=== PATIENT | female | born 1955 | race Caucasian/White ===

== ENCOUNTER → 2016-10-28 | Outpatient (CLI) | payer OTHER ==
--- NOTE | 2016-10-29 08:18 | BD ---
EXAMINATION TYPE: MG DEXA axial skeleton. DATE OF EXAM: 10/28/2016 3:57 PM COMPARISON: NONE CLINICAL HISTORY: POST MENOPAUSAL Height: 5'4 Weight: 166 FRAX RISK QUESTIONS: Alcohol (3 or more units per day): no Family History (Parent hip fracture): yes Glucocorticoids (More than 3mos): no (Ex: prednisone, prednisolone, methylprednisolone, dexamethasone, and hydrocortisone). History of Fracture in Adulthood: no Secondary Osteoporosis: 1. Type 1 Diabetes: no 2. Hyperthyroidism: no 3. Menopause before 45: yes 4. Malnutrition: no 5. Chronic liver disease: no Rheumatoid Arthritis: no Current Tobacco Use: no RISK FACTORS HISTORY OF: Postmenopausal woman: MEDICATIONS: Thyroid Medications: Which medication: Synthroid How Lon years Additional Medications: epileptic, blood pressure, type 2 diabetes, cholesterol Additional History: post menopausal EXAM MEASUREMENTS: Bone mineral densitometry was performed using the [employer] System. Bone mineral density as measured about the Lumbar spine is: ----- L1-L4(G/cm2): 1.137 T Score Values are as follows: ----- L2: -0.6 ----- L3: 0.4 ----- L4: -0.6 ----- L1-L4: -0.4 Bone mineral density about the R hip (g/cm2): 0.969 Bone mineral density about the L hip (g/cm2): 0.900 T Score values are as follows: -----R Neck: -0.5 -----L Neck: -1.0 -----R Intertrochanter: -0.6 -----L Intertrochanter: -0.9 IMPRESSION: Normal (Values between +1 and -1 indicate normal bone mass) NOTE: T-SCORE=SD OF THE YOUNG ADULT MEAN.
--- NOTE | 2016-11-01 09:51 | MM ---
Reason for exam: screening (asymptomatic). Last mammogram was performed 2 years and 3 months ago. History: Patient is postmenopausal. Physical Findings: A clinical breast exam by your physician is recommended on an annual basis and results should be correlated with mammographic findings. MG Screening Mammo w CAD Bilateral CC and MLO view(s) were taken. Prior study comparison: July 30, 2014, bilateral MG screening mammo w CAD. July 03, 2013, bilateral digital screening mammo w/CAD. There are scattered fibroglandular densities. Benign calcifications. There is no discrete abnormality. No significant changes when compared with prior studies. ASSESSMENT: Benign, BI-RAD 2 RECOMMENDATION: Routine screening mammogram of both breasts in 1 year.
== END | disposition home or self-care (01) ==
LOC: RADMAMWWP 15:18
PROVIDERS: ATTEND Family Medicine
DX: Z12.31 Encounter for screening mammogram for malignant neoplasm of breast (principal); M89.9 Disorder of bone, unspecified; Z78.0 Asymptomatic menopausal state
CPT/HCPCS: 77080; G0202

== ENCOUNTER → 2018-04-05 | Outpatient (CLI) | payer OTHER ==
--- NOTE | 2018-04-06 14:47 | MM ---
Reason for exam: screening (asymptomatic). Last mammogram was performed 1 year and 5 months ago. History: Patient is postmenopausal. Physical Findings: A clinical breast exam by your physician is recommended on an annual basis and results should be correlated with mammographic findings. MG Screening Mammo w CAD Bilateral CC and MLO view(s) were taken. Prior study comparison: October 28, 2016, bilateral MG screening mammo w CAD. July 30, 2014, bilateral MG screening mammo w CAD. There are scattered fibroglandular densities. Stable benign calcifications. There is no discrete abnormality. No significant changes when compared with prior studies. ASSESSMENT: Benign, BI-RAD 2 RECOMMENDATION: Routine screening mammogram of both breasts in 1 year.
== END | disposition home or self-care (01) ==
LOC: RADMAMWWP 15:16
PROVIDERS: ATTEND Family Medicine
DX: Z12.31 Encounter for screening mammogram for malignant neoplasm of breast (principal)
CPT/HCPCS: 77067

== ENCOUNTER → 2019-04-26 | Outpatient (CLI) | payer BC ==
--- NOTE | 2019-04-27 18:42 | BD ---
EXAMINATION TYPE: Axial Bone Density DATE OF EXAM: 04/26/2019 COMPARISON: NONE CLINICAL HISTORY: Height: 64 Weight: 154.0 FRAX RISK QUESTIONS: Alcohol (3 or more units per day): no Family History (Parent hip fracture): yes Glucocorticoids (More than 3mos): no (Ex: prednisone, prednisolone, methylprednisolone, dexamethasone, and hydrocortisone). History of Fracture in Adulthood: no Secondary Osteoporosis: 1. Type 1 Diabetes: no 2. Hyperthyroidism: no 3. Menopause before 45: yes 4. Malnutrition: no 5. Chronic liver disease: no Rheumatoid Arthritis: no Current Tobacco Use: no RISK FACTORS HISTORY OF: Family History of Osteoporosis: yes Active: yes Postmenopausal woman: age 43 Lost more than 2 inches in height since high school: no MEDICATIONS: ozempic, brivact, amitriptyline, atenolol, artvastin Thyroid Medications: synthroid How Lon years Additional History: EXAM MEASUREMENTS: Bone mineral densitometry was performed using the [employer] System. Bone mineral density as measured about the Lumbar spine is: ----- L1-L4(G/cm2): 1.083 T Score Values are as follows: ----- L2: -0.7 ----- L3: -0.5 ----- L4: -1.2 ----- L1-L4: -0.8 Bone mineral density has: decreased -5.8 % since study of: 10.28.2016 Bone mineral density about the R hip (g/cm2): 0.924 Bone mineral density about the L hip (g/cm2): 0.872 T Score values are as follows: -----R Neck: -0.8 -----L Neck: -1.2 -----R Total: -0.4 -----L Total: -0.7 Bone mineral density has: decreased -4.7 % since study of: 10.28.2016 IMPRESSION: Osteopenia (T Score between -2.5 and -1). There is slightly increased risk of fracture and the patient may be considered for treatment. Re-Screen 2-5 years. NOTE: T-SCORE=SD OF THE YOUNG ADULT MEAN.
--- NOTE | 2019-04-30 10:39 | MM ---
Reason for exam: screening (asymptomatic). Last mammogram was performed 1 year and 1 month ago. History: Patient is postmenopausal. Physical Findings: A clinical breast exam by your physician is recommended on an annual basis and results should be correlated with mammographic findings. MG Screening Mammo w CAD Bilateral CC and MLO view(s) were taken. Prior study comparison: April 05, 2018, bilateral MG screening mammo w CAD. October 28, 2016, bilateral MG screening mammo w CAD. There are scattered fibroglandular densities. No significant changes when compared with prior studies. ASSESSMENT: Negative, BI-RAD 1 RECOMMENDATION: Routine screening mammogram of both breasts in 1 year.
== END | disposition home or self-care (01) ==
LOC: RADBDWWP 15:16
PROVIDERS: ATTEND Family Medicine
DX: Z12.31 Encounter for screening mammogram for malignant neoplasm of breast (principal); M85.80 Other specified disorders of bone density and structure, unspecified site; Z78.0 Asymptomatic menopausal state
CPT/HCPCS: 77067; 77080

== ENCOUNTER → 2020-06-06 | Outpatient (CLI) | payer BC ==
--- NOTE | 2020-06-09 08:08 | MM ---
Reason for exam: screening (asymptomatic). Last mammogram was performed 1 year and 1 month ago. History: Patient is postmenopausal. Physical Findings: A clinical breast exam by your physician is recommended on an annual basis and results should be correlated with mammographic findings. MG Screening Mammo w CAD Bilateral CC and MLO view(s) were taken. Prior study comparison: April 26, 2019, bilateral MG screening mammo w CAD. April 05, 2018, bilateral MG screening mammo w CAD. There are scattered fibroglandular densities. Finding: There are typically benign round, regional calcifications in the anterior position of the right breast. There is no discrete abnormality. ASSESSMENT: Benign, BI-RAD 2 RECOMMENDATION: Routine screening mammogram of both breasts in 1 year.
== END | disposition home or self-care (01) ==
LOC: RADMAMWWP 08:32
PROVIDERS: ATTEND Family Medicine
DX: Z12.31 Encounter for screening mammogram for malignant neoplasm of breast (principal)
CPT/HCPCS: 77067

== ENCOUNTER → 2021-07-01 | Outpatient (CLI) | payer BC ==
--- NOTE | 2021-07-06 11:36 | MM ---
Reason for exam: screening (asymptomatic). Last mammogram was performed 1 year and 1 month ago. History: Patient is postmenopausal. Physical Findings: A clinical breast exam by your physician is recommended on an annual basis and results should be correlated with mammographic findings. MG 3D Screening Mammo W/Cad Bilateral CC and MLO view(s) were taken. Prior study comparison: June 06, 2020, bilateral MG screening mammo w CAD. April 26, 2019, bilateral MG screening mammo w CAD. The breast tissue is heterogeneously dense. This may lower the sensitivity of mammography. There are benign appearing round regional calcifications in the right breast. There is no discrete abnormality. ASSESSMENT: Benign, BI-RAD 2 RECOMMENDATION: Routine screening mammogram of both breasts in 1 year.
== END | disposition home or self-care (01) ==
LOC: RADMAMWWP 15:50
PROVIDERS: ATTEND Family Medicine
DX: Z12.31 Encounter for screening mammogram for malignant neoplasm of breast (principal); Z78.0 Asymptomatic menopausal state
CPT/HCPCS: 77063; 77067

== ENCOUNTER → 2022-07-05 | Outpatient (CLI) | payer BC ==
--- NOTE | 2022-07-06 09:17 | MM ---
Reason for Exam: Screening (asymptomatic). Last screening mammogram was performed 12 month(s) ago. Patient History: Menarche at age 14. First Full-Term at age 25. Hysterectomy at age 43. Postmenopausal. Risk Values: Taya 5 year model risk: 1.4%. NCI Lifetime model risk: 5.8%. Prior Study Comparison: 04/26/2019 Bilateral Screening Mammogram, [facility]. 06/06/2020 Bilateral Screening Mammogram, [facility]. 07/01/2021 Bilateral Screening Mammogram, [facility]. Tissue Density: There are scattered fibroglandular densities. Findings: Analyzed By CAD. There are stable loosely grouped benign-appearing round calcifications in the right breast anteriorly. There is no suspicious new group of microcalcifications or new suspicious mass in either breast. Overall Assessment: Benign, BI-RAD 2 Management: Screening Mammogram of both breasts in 1 year. A clinical breast exam by your physician is recommended on an annual basis and results should be correlated with mammographic findings. Electronically signed and approved by: Yuriy Burdick M.D.
== END | disposition home or self-care (01) ==
LOC: RADMAMWWP 10:49
PROVIDERS: ATTEND Family Medicine
DX: Z12.31 Encounter for screening mammogram for malignant neoplasm of breast (principal); Z78.0 Asymptomatic menopausal state
CPT/HCPCS: 77063; 77067

== ENCOUNTER → 2023-07-11 | Outpatient (CLI) | payer BC ==
--- NOTE | 2023-07-14 12:03 | MM ---
Reason for Exam: Screening (asymptomatic). Last mammogram was performed 1 year(s) and 1 month(s) ago. Patient History: Menarche at age 14. First Full-Term at age 25. Hysterectomy at age 43. Postmenopausal. Patient has history of breast feeding. Risk Values: Taya 5 year model risk: 1.5%. NCI Lifetime model risk: 5.6%. Prior Study Comparison: 06/06/2020 Bilateral Screening Mammogram, [facility]. 07/01/2021 Bilateral Screening Mammogram, [facility]. 07/05/2022 Bilateral MG 3D screening mammo w/cad, [facility]. Tissue Density: The breast tissue is heterogeneously dense. This may lower the sensitivity of mammography. Findings: Analyzed By CAD. There is no suspicious group of microcalcifications or new suspicious mass in either breast. Overall Assessment: Benign, BI-RAD 2 Management: Screening Mammogram of both breasts in 1 year. . Patient should continue monthly self-breast exams. A clinical breast exam by your physician is recommended on an annual basis. This exam should not preclude additional follow-up of suspicious palpable abnormalities. Note on Taya scores and lifetime risk: 1. A Taya score greater than 3% is considered moderate risk. If this is the case, consider specialist referral to assess eligibility for a risk reducing agent. 2. If overall lifetime risk for the development of breast cancer is 20% or higher, the patient may qualify for future screening with alternating mammogram and breast MRI. Electronically signed and approved by: Al Galarza M.D. Radiologis
== END | disposition home or self-care (01) ==
LOC: RADMAMWWP 09:40
PROVIDERS: ATTEND Family Medicine
DX: Z12.31 Encounter for screening mammogram for malignant neoplasm of breast (principal); Z78.0 Asymptomatic menopausal state
CPT/HCPCS: 77063; 77067

== ENCOUNTER → 2024-04-17 | Outpatient (CLI) | payer BC ==
--- NOTE | 2024-04-19 05:42 | MR ---
EXAMINATION TYPE: MR shoulder RT wo con DATE OF EXAM: 04/17/2024 COMPARISON: Outside right shoulder x-rays April 13, 2024 HISTORY: Right shoulder pain, decreased ROM x 3 mo. TECHNIQUE: Multiplanar, multisequence imaging of the right shoulder is performed without contrast. FINDINGS: Rotator Cuff: Intact infraspinatus tendon. Some heterogeneity of the supraspinatus tendon with surrou nding fluid. Increased signal with fiber loss along the bursal surface of the distal supraspinatus te ndon. Rotator cuff muscle bulk is preserved. Acromioclavicular Joint: There is moderate to severe narrowing with moderate spurring and capsular hy pertrophy. Underlying fat plane is maintained. Glenohumeral Joint: Small to moderate size joint effusion. Some narrowing is seen. No significant spu rring. Labrum: The labrum appears grossly intact given limitation of non-arthrogram study. Biceps Tendon: The long head of biceps is in normal location within bicipital groove. Bone marrow signal: No focal abnormal marrow signal is appreciated. Other: No additional significant abnormality is appreciated. IMPRESSION: 1. Tendinosis of the subscapularis tendon. 2. Tendinosis/partial tearing of the supraspinatus tendon. 3. At least moderate degenerative changes are present as detailed above.
== END | disposition home or self-care (01) ==
LOC: RADMRIMAIN 13:18
PROVIDERS: ATTEND Orthopaedic Surgery
DX: M25.511 Pain in right shoulder

== ENCOUNTER → 2024-05-02 | Outpatient (CLI) | payer BC ==
[2024-05-03 02:21] LABS: Basophils # (A) 0.03 X 10*3/uL (0.00-0.10); Basophils % (A) 0.7 %; Eosinophils # (A) 0.12 X 10*3/uL (0.04-0.35); Eosinophils % (A) 2.7 %; HCT 36.4 % (37.2-46.3); Lymphocytes # (A) 1.46 X 10*3/uL (0.90-5.00); Lymphocytes % (A) 32.7 %; MCH 30.2 pg (27.0-32.0); MCV 91.5 FL (80.0-97.0); Mean Platelet Volume 10.6 FL (9.5-12.2); Monocytes # (A) 0.33 X 10*3/uL (0.20-1.00); Monocytes % (A) 7.4 %; NRBC Per 100 WBC 0 X 10*3/uL (0.00-0.01); Neutrophils # (A) 2.51 X 10*3/uL (1.80-7.70); Neutrophils % (A) 56.3 %; Platelet Count 181 X 10*3/uL (140-440); RBC 3.98 X 10*6/uL (4.10-5.20); RDW 11.9 % (11.5-14.5); WBC 4.46 X 10*3/uL (4.50-10.00)
[2024-05-03 03:04] LABS: Anion Gap 9.7 mmol/L (4.00-12.00); Carbon Dioxide 26.3 mmol/L (21.6-31.8); Potassium 4.5 mmol/L (3.5-5.5)
== END | disposition home or self-care (01) ==
LOC: LABPAT 16:17
PROVIDERS: ATTEND Orthopaedic Surgery
DX: Z01.818 Encounter for other preprocedural examination (principal)
CPT/HCPCS: 80051; 85025; 93005

== ENCOUNTER 2024-05-17 05:48 | Day surgery (SDC) | payer BC ==
[2024-05-11 12:42] VITALS: BMI 25.7
--- NOTE | 2024-05-17 02:14 | HP ---
HISTORY AND PHYSICAL DATE OF SURGERY: 05/17/2024. HISTORY OF PRESENT ILLNESS: Nhung Barahona is a 68-year-old patient seen with progressive right shoulder pain. Options for treatment were discussed with her. She elected to proceed with right shoulder arthroscopy. Consent was obtained. PAST MEDICAL HISTORY: Hypertension, yau-udujyhk-fymfustju diabetes, hypothyroidism. PAST SURGICAL HISTORY: Noncontributory. DAILY MEDICATIONS: 1. Atenolol. 2. Glimepiride. 3. Ozempic. 4. Ramipril. 5. Rosuvastatin. 6. Synthroid. 7. Atenolol. ALLERGIES: None. SOCIAL HISTORY: She denies tobacco use. PHYSICAL EVALUATION OF THE RIGHT SHOULDER: Flexion is 130 degrees. Abduction is 80 degrees. External rotation is 30 degrees with pain and weakness. She has tenderness along the anterolateral acromion and rotator cuff insertion site. Impingement is positive at 70 degrees. Cross-body adduction sign is positive. Drop-arm sign is positive. Distal neurovascular exam is intact. IMAGING STUDIES: Right shoulder radiographs revealed a type 3 acromion, severe acromioclavicular joint osteoarthritis and calcific changes of the tuberosity. MRI of right shoulder revealed a partial rotator cuff tendon tear, severe acromioclavicular joint osteoarthritis, and effusion. IMPRESSION: 1. Right shoulder impingement with rotator cuff tear. 2. Right shoulder acromioclavicular joint osteoarthritis. 3. Hypertension. 4. Hyperlipidemia. 5. Omc-qqvwszk-gluorctry diabetes. 6. Hypothyroidism. PLAN: Right shoulder arthroscopy with subacromial decompression, rotator cuff repair, Briseida procedure and debridement. MMODL / IJN: [id number] /
[~2024-05-17 05:48] MED LIST: DEXAMETHASONE SOD PHOSPHATE 4 MG/ML 1 ML VIAL IV ONE; HYDROmorphone 0.5 MG/0.5 ML SYRINGE IVP PRN; ONDANSETRON 4 MG/2 ML VIAL IVP ONE; fentaNYL (PF) 50 MCG/ML 2 ML AMP IV PRN
[2024-05-17] MEDS: IV FLUID CONTINUATION 1,000 ML IV ONE (06:15)
[2024-05-17] MEDS: LACTATED RINGERS 1,000 ML IV SCH (06:30)
[2024-05-17 06:37] LABS: Glucose,Whole Blood 138 mg/dL (70-110)
[2024-05-17] MEDS: MIDAZOLAM 2 MG/2 ML VIAL IV ONE (06:38)
[2024-05-17] MEDS ORDERED: DEXAMETHASONE SOD PHOSPHATE 4 MG/ML 1 ML VIAL IVP STA (06:42)
[2024-05-17] MEDS: ONDANSETRON 4 MG/2 ML VIAL IVP STA (06:45)
[2024-05-17] MEDS ORDERED: LIDOCAINE 1% INJ 10MG/ML (20 ML MDV) ONE (07:19)
[2024-05-17] MEDS ORDERED: ROPIVACAINE 5 MG/ML 30 ML VIAL ONE (07:19)
[2024-05-17] MEDS ORDERED: MIDAZOLAM 2 MG/2 ML VIAL ONE (07:19)
[2024-05-17] MEDS ORDERED: DEXAMETHASONE SOD PHOSPHATE 4 MG/ML 1 ML VIAL ONE (07:19)
[2024-05-17] MEDS ORDERED: SUCCINYLCHOLINE CHLORIDE 200 MG/10 ML VIAL IV ONE (07:19)
[2024-05-17] MEDS ORDERED: PROPOFOL 10 MG/ML 20 ML VIAL IV ONE (07:19)
[2024-05-17 09:16] VITALS: TEMP 97.2
--- NOTE | 2024-05-17 09:23 | P.OP ---
Date of Procedure: 05/17/24 Preoperative Diagnosis: Right shoulder impingement syndrome Postoperative Diagnosis: 1. Right shoulder rotator cuff tear 2. Right shoulder impingement 3. Right shoulder bicipital tendinitis 4. Right shoulder acromioclavicular joint osteoarthritis 5. Right shoulder superficial labral tear Procedure(s) Performed: 1. Right shoulder arthroscopic rotator cuff repair 2. Right shoulder arthroscopic subacromial decompression 3. Right shoulder arthroscopic biceps tenodesis 4. Right shoulder arthroscopic Briseida procedure 5. Right shoulder arthroscopic debridement labral tear Implants: 1Arthrex 5.5 swivel lock anchor 1Arthrex 4.75 swivel lock anchor Anesthesia: GETA, regional (Interscalene block) Surgeon: Murray Lambert Remedial Reading Teacher #1: Dequan Barrow Estimated Blood Loss (ml): 10 Pathology: none sent Condition: stable Disposition: PACU Indications for Procedure: 68-year-old patient seen with progressive right shoulder pain. After having treatment options discussed, she elected to proceed with arthroscopy Operative Findings: See description of procedure Description of Procedure: Patient underwent an interscalene block by department of anesthesia. The patient was then taken to the operative suite. The patient underwent a general anesthetic by the department of anesthesia. The patient was placed into a lateral position and secured. There was appropriate padding of the bony prominence. Right shoulder was then prepped and draped in normal sterile orthopedic fashion. We placed the extremity in 10 pounds of longitudinal traction. A posterior incision was now made for a posterior working portal site. The trocar and cannula were inserted into the glenohumeral joint. Arthroscopy was initiated. Spinal needle was now inserted anteriorly, to ascertain the anterior working portal site. An incision was now made in that area, a trocar was inserted followed by a probe. There was superficial tearing of the superior labrum. There was hyperemia and partial tearing long head biceps tendon. The glenohumeral joint revealed grade I chondromalacia with no tears. I debrided out the superficial labral tear with a motorized shaver. I decided to proceed with arthroscopic biceps tenodesis. A cannula was not introduced through the anterior portal site. I passed the suture around the biceps tendon and then performed a loop and tack type stitch through the tendon itself. The tendon was now released from the superior labral attachment. With the assistance of Bulmaro MAJOR punch hole at the rotator cuff interval for insertion of an anchor. The suture limb was passed through the eyelet of an Arthrex 4.75 swivel lock anchor. I introduced the eyelet into the preplanned hole. I held in position while Bulmaro MAJOR tensioned the suture and deployed the anchor with good fixation noted. The residual suture limb was now clipped. We had a stable appearing biceps tenodesis. Instruments were now removed from the glenohumeral joint. Utilizing the posterior working portal site, the trocar and cannula were inserted into the subacromial space. Arthroscopy initiated. I made an incision 2 fingerbreadths lateral to the acromion. I introduced my trocar followed by my ArthroCare ablator. I now began ablating thick subacromial bursal tissue, which exposed the undersurface of the anterior acromion. There was diminished subacromial space. There was a very prominent anterior acromion. A motorized bur was introduced and a subacromial decompression was performed. I also excised some osteophytes off the inferior aspect of the distal clavicle. The AC joint was visualized and noted to be fairly arthritic. The motorized bur was introduced in the anterior portal site and a Briseida procedure was performed without difficulty, decompressing the AC joint nicely. I turned my attention to the rotator cuff. There was a 1.5 cm rotator cuff tear. I debrided the margins getting down to stable tendon tissue. I introduced my motorized bur and abraded the footprint area, getting some petechial bleeding. I now passed 3 inverted mattress sutures through good bites of rotator cuff tendon with the assistance of Bulmaro MAJOR. I punched a hole at the footprint area for insertion of an anchor. All 6 limbs of suture were passed through the eyelet of a 5.5 Arthrex swivel lock anchor. I placed the eyelet into her prepunch hole. I held in p osition while Bulmaro MAJOR tensioned all 6 limbs of suture and deployed the anchor with good fixation noted. All residual suture limbs were now clipped. We had good compression of the tendon along the entire footprint. Instruments now removed from the portal sites. All portal sites were approximated with nylon suture. Sterile dressings were applied followed by a shoulder immobilizer. Dequan MAJOR assisted in this complex case. The patient was awakened, transferred to a bed, and taken to recovery in stable condition.
[2024-05-17 10:38] VITALS: BP 139/90; PULSE 71; RESP 18
--- NOTE | 2024-05-17 18:27 | P.ANPRN ---
Procedure Note - Anesthesia - Nerve Block Performed Right Interscalene Single Time Out Performed: Yes Date of Procedure: 05/17/24 Procedure Start Time: 06:37 Procedure Stop Time: 06:41 Location of Patient: PreOp Indication: Acute Post-Operative Pain, Requested by Surgeon Sedation Type: Sedate with meaningful contact maintained Preparation: Sterile Prep Position: Supine Needle Types: Pajunk Needle Gauge: 21 Ultrasound used to visualize needle placement: Yes Ultrasound used to observe medication spread: Yes Blood Aspirated: No Pain Paresthesia on Injection Noted: No Resistance on Injection: Normal Image Stored and Saved: Yes Events: Uneventful and Well Tolerated (Ropivacaine 0.5% 20 cc plus dexamethasone 4 mg)
== END 2024-05-17 10:56 | disposition home or self-care (01) ==
LOC: OR 05:48
PROVIDERS: ATTEND Orthopaedic Surgery
CPT/HCPCS: 64415

== ENCOUNTER → 2024-07-23 | Outpatient (CLI) | payer BC ==
--- NOTE | 2024-07-23 13:15 | BD ---
EXAMINATION TYPE: Axial Bone Density DATE OF EXAM: 07/23/2024 CLINICAL HISTORY: 68 years old Female. ICD-10 CODE: Z12.31 SCREENING M81.0 AGE-RELATED OSTEOPOROSIS W/ , Additional History: Height: 64 Weight: 145 FRAX RISK QUESTIONS: Family History (Parent hip fracture): yes Secondary Osteoporosis: 3. Menopause before 45: yes RISK FACTORS HISTORY OF: MEDICATIONS: Thyroid Medications: Which medication: Synthroid 20 years How Long: EXAM MEASUREMENTS: Bone mineral densitometry was performed using the [employer] System. Bone mineral density as measured about the Lumbar spine is: ----- L1-L4(G/cm2): 1.054 T Score Values are as follows: ----- L1: -1.3 ----- L2: -1.2 ----- L3: -0.6 ----- L4: -1.2 ----- L1-L4: -1.1 Z Score Values are as follows: ----- L1: 0.3 ----- L2: 0.4 ----- L3: 1.0 ----- L4: 0.4 ----- L1-L4: 0.5 Bone mineral density has: Decreased -2.7% since study of: 04-26-19 Bone mineral density about the R hip (g/cm2): 0.832 Bone mineral density about the L hip (g/cm2): 0.845 T Score values are as follows: -----R Neck: -1.4 -----L Neck: -1.9 -----R Total: -1.4 -----L Total: -1.3 Z Score values are as follows: -----R Neck: 0.1 -----L Neck: -0.4 -----R Total: -0.1 -----L Total: 0.0 Bone mineral density has: Decreased -10.6% since study of: 04-26-19 FRAX%s: The graph provided illustrates a 18.9% chance for a major osteoporotic fx and a 2.3% chance f or the hips probability for fx in 10 years time. IMPRESSION: Osteopenia (T Score between -2.5 and -1). There is slightly increased risk of fracture and the patient may be considered for treatment. Re-Screen 2-5 years. NOTE: T-SCORE=SD OF THE YOUNG ADULT MEAN. [facility], , 07/23/2024 1:13 PM
--- NOTE | 2024-07-30 08:27 | MM ---
Reason for Exam: Screening (asymptomatic). Last screening mammogram was performed 12 month(s) ago. Patient History: Menarche at age 14. First Full-Term at age 25. Hysterectomy at age 43. Postmenopausal. Patient has history of breast feeding. Risk Values: Taya 5 year model risk: 1.5%. NCI Lifetime model risk: 5.4%. Prior Study Comparison: 04/05/2018 Bilateral Screening Mammogram, [facility]. 04/26/2019 Bilateral Screening Mammogram, [facility]. 06/06/2020 Bilateral Screening Mammogram, [facility]. 07/01/2021 Bilateral Screening Mammogram, [facility]. 07/05/2022 Bilateral MG 3D screening mammo w/cad, [facility]. 07/11/2023 Bilateral MG 3D screening mammo w/cad, [facility]. Tissue Density: The breasts are heterogeneously dense, which may obscure small masses. Findings: Analyzed By CAD. There is no suspicious group of microcalcifications or new suspicious mass in either breast. Benign-appearing calcifications. Overall Assessment: Benign, BI-RAD 2 Management: Screening Mammogram of both breasts in 1 year. . Patient should continue monthly self-breast exams. A clinical breast exam by your physician is recommended on an annual basis. This exam should not preclude additional follow-up of suspicious palpable abnormalities. Note on Taya scores and lifetime risk: 1. A Taya score greater than 3% is considered moderate risk. If this is the case, consider specialist referral to assess eligibility for a risk reducing agent. 2. If overall lifetime risk for the development of breast cancer is 20% or higher, the patient may qualify for future screening with alternating mammogram and breast MRI. [facility], , 07/30/2024 8:25 AM. Electronically signed and approved by: Al Galarza M.D. Radiologis
== END | disposition home or self-care (01) ==
LOC: RADMAMWWP 12:12
PROVIDERS: ATTEND Family Medicine
DX: Z12.31 Encounter for screening mammogram for malignant neoplasm of breast (principal); M81.0 Age-related osteoporosis without current pathological fracture; Z78.0 Asymptomatic menopausal state; R92.333 Mammographic heterogeneous density, bilateral breasts; M85.80 Other specified disorders of bone density and structure, unspecified site
CPT/HCPCS: 77063; 77067; 77080